=== PATIENT | female | born 2000 | race Caucasian/White ===

== ENCOUNTER 2020-09-23 11:58 | Observation (INO) | payer SELFPAY ==
[~2020-09-23 11:58] MED LIST: DEXAMETHASONE SOD PHOSPHATE INJ 4 MG/1 ML VIAL ONE; DIPHENHYDRAMINE HCL 50 MG/ML VIAL ONE; KETOROLAC TROMETHAMINE 60 MG/2 ML SDV ONE; METOCLOPRAMIDE HCL INJ/PF 10 MG/2 ML SDV ONE; ONDANSETRON HCL INJ/PF 4 MG/2 ML SDV ONE; ROCURONIUM BROMIDE INJ 50 MG/5 ML VIAL IV ONE; SUCCINYLCHOLINE CHLORIDE INJ 200 MG/10 ML VIAL ONE
--- NOTE | 2020-09-23 12:26 | ER Document Report ---
ED Medical Screen (RME) - General Chief Complaint: Abdominal Pain Stated Complaint: ABDOMINAL PAIN,VOMITING Time Seen by Provider: 09/23/20 12:21 Primary Care Provider: DON ENGLAND MD [Primary Care Provider] - Follow up as needed Notes: Patient is a 20-year-old female who presents emergency department with a chief complaint of abdominal pain. Patient reports over the past 2 to 3 weeks she has been battling upper abdominal pain. Patient reports they are significantly worse in the right upper quadrant. Patient denies fever. Patient reports over the past 2 days she has developed vomiting. Denies sick contacts. Denies urinary symptoms. States she has never had any abdominal surgeries in the past. Denies any new medications. Patient's last bowel movement she believes was a couple of days ago. Denies diarrhea. - Related Data Allergies/Adverse Reactions: No Known Allergies Allergy (Verified 09/23/20 12:16) Past Medical History - Social History Frequency of alcohol use: None Drug Abuse: None Physical Exam - Vital signs Vitals: Temp Pulse Resp BP Pulse Ox 98.8 F 94 16 114/64 100 09/23/20 12:07 09/23/20 12:09/23/20 12:09/23/20 12:09/23/20 12:07 - Abdominal Inspection: Normal Distension: No distension Bowel sounds: Normal Tenderness: Tender - Right upper quadrant tenderness with palpation. Course - Re-evaluation Re-evalutation: 09/23/20 12:26 Patient has right upper quadrant tenderness. Will order basic labs, urinalysis as well as right upper quadrant ultrasound to evaluate the gallbladder. I have greeted and performed a rapid initial assessment of this patient. A comprehensive ED assessment and evaluation of the patient, analysis of test results and completion of the medical decision making process will be conducted by additional ED providers. - Vital Signs Vital signs: Temp Pulse Resp BP Pulse Ox 98.8 F 94 16 114/64 100 09/23/20 12:09/23/20 12:09/23/20 12:09/23/20 12:09/23/20 12:07 Doctor's Discharge - Discharge Referrals: DON ENGLAND MD [Primary Care Provider] - Follow up as needed
[2020-09-23 13:36] LABS: ABSOLUTE LYMPHOCYTES (AUTO) 0.9 10^3/uL (0.5-4.7); ABSOLUTE MONOCYTES (AUTO) 0.3 10^3/uL (0.1-1.4); ABSOLUTE NEUT (AUTO) 10.2 10^3/uL (1.7-8.2); BASOPHILS % (AUTO) 0.2 % (0-2); HEMATOCRIT 42.4 % (36.0-47.0); LYMPHOCYTES % (AUTO) 8.1 % (13-45); MEAN CORPUSCULAR HEMOGLOBIN 29.7 pg (27.0-33.4); MEAN CORPUSCULAR HGB CONC 33.1 g/dL (32.0-36.0); MEAN CORPUSCULAR VOLUME 90 fl (80-97); MONOCYTES % (AUTO) 2.9 % (3-13); PLATELET COUNT 334 10^3/uL (150-450); RED BLOOD COUNT 4.73 10^6/uL (3.72-5.28); RED CELL DISTRIBUTION WIDTH 14.8 % (11.5-14.0); SEGMENTED NEUTROPHILS % (AUTO) 88.8 % (42-78); TOTAL CELLS COUNTED % (AUTO) 100 %; WHITE BLOOD COUNT 11.5 10^3/uL (4.0-10.5)
[2020-09-23 13:39] LABS: APPEARANCE,URINE CLEAR; BILIRUBIN,URINE NEGATIVE (NEGATIVE); COLOR,URINE YELLOW; GLUCOSE, URINE NEGATIVE (NEGATIVE); KETONES,URINE 80 mg/dL (NEGATIVE); LEUKOCYTE ESTERASE,URINE NEGATIVE (NEGATIVE); NITRITE,URINE NEGATIVE (NEGATIVE); PROTEIN,URINE 100 mg/dL (NEGATIVE); URINE SPECIFIC GRAVITY 1.019; UROBILINOGEN,URINE NEGATIVE mg/dL (<2.0)
--- NOTE | 2020-09-23 13:41 | RADIOLOGY REPORT (SQ) ---
EXAM DESCRIPTION: U/S ABDOMEN LIMITED W/O DOP IMAGES COMPLETED DATE/TIME: 09/23/2020 1:30 pm REASON FOR STUDY: right upper quadrant pain, evaluate gallbladder COMPARISON: None. TECHNIQUE: Dynamic and static grayscale images acquired of the abdomen and recorded on PACS. Additio oral selected color Doppler and spectral images recorded. LIMITATIONS: None. FINDINGS: PANCREAS: No masses. Visualized pancreatic duct normal caliber. LIVER: No masses. Echotexture normal. LIVER VASCULATURE: Normal directional flow of the main portal vein and hepatic veins. GALLBLADDER: No stones. Mild diffuse wall thickening with trace pericholecystic fluid. ULTRASOUND-DETECTED CLAUDIO'S SIGN: Positive. INTRAHEPATIC DUCTS AND COMMON DUCT: CBD and intrahepatic ducts normal caliber. No filling defects. INFERIOR VENA CAVA: Normal flow. AORTA: No aneurysm. RIGHT KIDNEY: Normal size. Normal echogenicity. No solid or suspicious masses. No hydronephrosis. No calcifications. PERITONEAL AND RIGHT PLEURAL SPACE: No ascites or effusions. OTHER: No other significant findings. IMPRESSION: Mild gallbladder wall thickening with trace pericholecystic fluid and positive sonograph ic Claudio's sign suggests cholecystitis. No demonstrated cholelithiasis. TECHNICAL DOCUMENTATION: JOB ID: [id number] 2010 [employer]- All Rights Reserved Reading location - IP/workstation name: [email or web address]
[2020-09-23 14:03] LABS: ALBUMIN 5.5 g/dL (3.5-5.0); ALKALINE PHOSPHATASE 70 U/L (38-126); ASPARTATE AMINO TRANSFERASE 23 U/L (14-36); BILIRUBIN,DIRECT 0.3 mg/dL (0.0-0.4); BILIRUBIN,TOTAL 0.9 mg/dL (0.2-1.3); BLOOD UREA NITROGEN 8 mg/dL (7-20); CALCIUM 10.2 mg/dL (8.4-10.2); GLUCOSE 75 mg/dL (75-110); POTASSIUM 4.3 mmol/L (3.6-5.0); TOTAL PROTEIN 9.3 g/dL (6.3-8.2)
[2020-09-23 14:08] LABS: CARBON DIOXIDE 13 mmol/L (22-30); CHLORIDE 104 mmol/L (98-107)
[2020-09-23 14:09] LABS: ANION GAP 23 (5-19)
[2020-09-23] MEDS ORDERED: NORMAL SALINE 1000 ML 1,000 ML IV ONE (14:16)
[2020-09-23] MEDS ORDERED: ONDANSETRON HCL INJ/PF 4 MG/2 ML SDV IV ONE (14:17)
--- NOTE | 2020-09-23 14:30 | ER Document Report ---
ED GI/ - General Chief Complaint: Abdominal Pain Stated Complaint: ABDOMINAL PAIN,VOMITING Time Seen by Provider: 09/23/20 12:21 - HPI Notes: 09/23/20 14:26 Patient is a 20-year-old female with no significant past medical history who presents with loss of appetite, nausea, and vomiting. Patient noticed that around the beginning of the year, she had lost her appetite. She states that she then began having vomiting several days ago. She has vomited several times the past 3 days. She complains of pain to her upper abdomen. No fevers or chills. She denies any chest pain or shortness of breath. No Covid contacts. She has never had any abdominal surgeries. She denies any diarrhea or constipation. No urinary symptoms. 09/23/20 20:43 - Related Data Allergies/Adverse Reactions: No Known Allergies Allergy (Verified 09/23/20 12:16) Past Medical History - General Information source: Patient - Social History Smoking Status: Never Smoker Frequency of alcohol use: None Drug Abuse: None Family History: Reviewed & Not Pertinent Review of Systems - Review of Systems Notes: CONSTITUTIONAL: No fever, fatigue or weight loss. SKIN: No rash. HENT: No congestion, ear pain, or sore throat. EYES: No recent vision problems or eye pain. CARDIOVASCULAR: No chest pain or edema. RESPIRATORY: No cough, shortness of breath, congestion, or wheezing. GASTROINTESTINAL: Positive for epigastric pain, nausea, vomiting. No diarrhea. GENITOURINARY: No dysuria. MUSCULOSKELETAL: No joint pain or swelling. LYMPHATIC: No swollen glands. NEUROLOGIC: No seizures. No headache, focal weakness or sensory changes. HEMATOLOGIC: No unusual bruising or bleeding. PSYCHIATRIC: No depression or anxiety. Physical Exam - Vital signs Vitals: Temp Pulse Resp BP Pulse Ox 98.8 F 94 16 114/64 100 09/23/20 12:07 09/23/20 12:07 09/23/20 12:07 09/23/20 12:07 09/23/20 12:07 - General General appearance: Appears well In distress: None Notes: VITAL SIGNS: Within normal limits. GENERAL: No acute distress, non-toxic appearance. HEAD: Normal with no signs of head trauma. EYES: Conjunctiva normal, no discharge. NECK: Normal range of motion, no tenderness, supple, no lymphadenopathy, No adenopathy, no JVD. CHEST: Clear breath sounds bilaterally. No wheezes, rales, or rhonchi. CARDIAC: Regular rate and rhythm. S1 and S2, without murmurs, gallops, or rubs. VASCULAR: No Edema. ABDOMEN: Discomfort to epigastric palpation. No guarding or rigidity. GASTROINTESTINAL: Bowel sounds normal GENITOURINARY: Normal, No tenderness MUSCULOSKELETAL: Good range of motion of all major joints. Extremities without clubbing, cyanosis or edema. NEUROLOGICAL: Alert and oriented x 3. No focal sensory or strength deficits. Speech normal. Follows commands appropriately. PSYCHIATRIC: Normal Affect, judgement and mood. SKIN: Normal appearance with no rashes or lesions. Course - Re-evaluation Re-evalutation: 09/23/20 14:30 Patient's ultrasound is questionable for cholecystitis. She is also very dehydrated on her blood work as her CO2 is low. I will discuss with general surgery. General surgery requested a rapid Covid test and Zosyn. Patient will be admitted to the surgicalist team. Patient and mother have been updated on the plan. 09/23/20 20:44 - Vital Signs Vital signs: Temp Pulse Resp BP Pulse Ox 98.3 F 91 19 113/61 99 09/23/20 20:20 09/23/20 20:20 09/23/20 20:20 09/23/20 20:20 09/23/20 20:20 - Laboratory Results Result Diagrams: 09/23/20 13:18 09/23/20 13:18 Laboratory Results Interpreted: 09/23/20 09/23/20 09/23/20 13:18 13:18 13:18 WBC 11.5 H RDW 14.8 H Lymph % (Auto) 8.1 L [place] % (Auto) 2.9 L Absolute Neuts (auto) 10.2 H Seg Neutrophils % 88.8 H Carbon Dioxide 13 L Anion Gap 23 H Total Protein 9.3 H Albumin 5.5 H Urine Protein 100 H Urine Ketones 80 H Urine Blood SMALL H Critical Laboratory Results Reviewed: No Critical Results - Radiology Results Critical Radiology Results Reviewed: No Critical Results Discharge - Discharge Clinical Impression: Cholecystitis Nausea and vomiting Qualifiers: Vomiting type: unspecified Vomiting Intractability: non-intractable Qualified Code(s): R11.2 - Nausea with vomiting, unspecified Condition: Stable Disposition: ADMITTED INPATIENT Admitting Provider: Surgicalist Unit Admitted: Surgical Floor
[2020-09-23] MEDS ORDERED: PIPERACILLIN/TAZOBACTAM 3.375 GM VIAL IV ONE (14:33)
[2020-09-23] MEDS ORDERED: MORPHINE SULFATE 10 MG/ML INJ IV ONE (14:49)
[2020-09-23] MEDS ORDERED: FENTANYL CITRATE INJ/PF 100 MCG/2 ML AMPUL ONE (16:34)
[2020-09-23] MEDS ORDERED: MIDAZOLAM 2 MG/2 ML INJ ONE (16:34)
[2020-09-23] MEDS ORDERED: PROPOFOL INJ 200 MG/20 ML VIAL IV ONE (16:35)
[2020-09-23] MEDS ORDERED: SUGAMMADEX SODIUM 200 MG/2 ML SDV IV ONE (16:35)
[2020-09-23] MEDS ORDERED: BUPIVACAINE HCL 0.25 % INJ/PF (2.5 MG/1 ML) 30 ML VIAL ONE (16:54)
--- NOTE | 2020-09-23 17:13 | PDOC H&P ---
History of Present Illness Admission Date/PCP: 09/23/20 16:04 Patient complains of: right upper quadrant pain, nausea and vomiting History of Present Illness: ANU TY is a 20 year old female with a 1 week history of worsening, persistent right upper quadrant pain. It began as episodic pain after eating. It has progressed to constant pain that never goes away. She finds it difficult to hold anything down. She vomits every time she eats. She reports feeling weak and lethargic. She presented to the emergency department today for continued pain, fatigue, malaise, and weakness. She denies any sick contacts. The ER identified evidence of cholecystitis on right upper quadrant ultrasound, and surgery was notified. The patient denies chest pain, shortness of breath, blurry vision. Past Medical History Medical History: None Past Surgical History Past Surgical History: Reports: Other - [place] tooth extraction Social History Smoking Status: Current Every Day Smoker Electronic Cigarette use?: Yes Frequency of Alcohol Use: Occasional - Twice per month Drugs: None Family History Parental Family History Reviewed: Yes Children Family History Reviewed: Yes Sibling(s) Family History Reviewed.: Yes Medication/Allergy Allergies/Adverse Reactions: No Known Allergies Allergy (Verified 09/23/20 12:16) Review of Systems Constitutional: PRESENT: anorexia, chills, fatigue, fever(s), weakness Eyes: ABSENT: visual disturbances Ears: ABSENT: hearing changes Nose, Mouth, and Throat: ABSENT: sore throat Cardiovascular: ABSENT: chest pain Respiratory: ABSENT: cough Gastrointestinal: PRESENT: abdominal pain, bloating, nausea, vomiting Genitourinary: ABSENT: dysuria Musculoskeletal: ABSENT: back pain Integumentary: ABSENT: pruritus, rash Neurological: PRESENT: dizziness. ABSENT: confusion, convulsions Psychiatric: ABSENT: anxiety, depression Endocrine: ABSENT: cold intolerance, heat intolerance Hematologic/Lymphatic: ABSENT: easy bleeding, easy bruising Physical Exam Vital Signs: Temp Pulse Resp BP Pulse Ox 98.8 F 94 16 114/64 100 09/23/20 12:07 09/23/20 12:07 09/23/20 12:07 09/23/20 12:07 09/23/20 12:07 Intake & Output 09/22/20 09/23/20 09/24/20 06:59 06:59 06:59 Intake Total 1000 Balance 1000 Weight 61.235 kg General appearance: PRESENT: no acute distress, cooperative Head exam: PRESENT: atraumatic, normocephalic Eye exam: PRESENT: EOMI, PERRLA. ABSENT: scleral icterus Mouth exam: PRESENT: moist, neck supple Neck exam: ABSENT: meningismus, tenderness, thyromegaly, tracheal deviation Respiratory exam: PRESENT: unlabored. ABSENT: tachypnea, wheezes Cardiovascular exam: ABSENT: tachycardia GI/Abdominal exam: PRESENT: distended - mild, Claudio's sign, soft, tenderness Rectal exam: ABSENT: deferred Extremities exam: ABSENT: clubbing Musculoskeletal exam: ABSENT: deformity Neurological exam: PRESENT: alert, awake, oriented to person, oriented to place, oriented to time, oriented to situation Psychiatric exam: ABSENT: agitated, anxious, depressed Focused psych exam: ABSENT: delusional Skin exam: ABSENT: cyanosis, erythema, jaundice Results Laboratory Results: 09/23/20 13:18 09/23/20 13:18 09/23/20 09/23/20 09/23/20 13:18 13:18 13:18 WBC 11.5 H RBC 4.73 Hgb 14.0 Hct 42.4 MCV 90 MCH 29.7 MCHC 33.1 RDW 14.8 H Plt Count 334 Seg Neutrophils % 88.8 H Sodium 140.1 Potassium 4.3 Chloride 104 Carbon Dioxide 13 L Anion Gap 23 H BUN 8 Creatinine 0.62 Est GFR ( Amer) > 60 Glucose 75 Calcium 10.2 Total Bilirubin 0.9 AST 23 Alkaline Phosphatase 70 Total Protein 9.3 H Albumin 5.5 H Urine Color YELLOW Urine Appearance CLEAR Urine pH 5.0 Ur Specific [place] 1.019 Urine Protein 100 H Urine Glucose (UA) NEGATIVE Urine Ketones 80 H Urine Blood SMALL H Urine Nitrite NEGATIVE Ur Leukocyte Esterase NEGATIVE Urine WBC (Auto) 1 Urine RBC (Auto) 5 Impressions: Abdomen Ultrasound 09/23/20 12:26 IMPRESSION: Mild gallbladder wall thickening with trace pericholecystic fluid and positive sonographic Claudio's sign suggests cholecystitis. No demonstrated cholelithiasis. Assessment & Plan - Diagnosis (1) Cholecystitis Is this a current diagnosis for this admission?: Yes - Time Anticipated Discharge Disposition: Home, Self Care Anticipated Discharge Timeframe: within 24 hours - Plan Summary Plan Summary: 20-year-old female with a history, physical, laboratory evaluation, and ultrasound consistent with cholecystitis. I have recommended cholecystectomy as definitive surgical treatment. The patient has agreed to this. Check COVID-19 status. Risk/benefits discussed, informed consent obtained, and all questions answered. Plan for laparoscopic cholecystectomy JESSICA.
[2020-09-23] MEDS ORDERED: FENTANYL CITRATE INJ/PF 100 MCG/2 ML AMPUL IV PRN ×3 (17:36)
[2020-09-23] MEDS ORDERED: MORPHINE SULFATE 10 MG/ML INJ IV PRN (17:36)
[2020-09-23] MEDS ORDERED: DIPHENHYDRAMINE HCL 50 MG/ML VIAL IV PRN (17:36)
[2020-09-23] MEDS ORDERED: MEPERIDINE HCL/PF INJ 25 MG/1 ML DISP.SYRIN IV PRN (17:36)
[2020-09-23] MEDS ORDERED: OXYCODONE-ACETAMINOPHEN 5-325 MG TABLET PO PRN ×2 (17:36)
[2020-09-23] MEDS ORDERED: PROMETHAZINE HCL INJ 25 MG/1 ML VIAL IV PRN ×2 (17:36)
[2020-09-23] MEDS ORDERED: ONDANSETRON HCL INJ/PF 4 MG/2 ML SDV IV PRN (18:14)
--- NOTE | 2020-09-23 18:27 | Operative Report ---
Nonrecallable Operative Report DATE OF SURGERY: 09/23/20 PREOPERATIVE DIAGNOSIS: Acute cholecystitis POSTOPERATIVE DIAGNOSIS: Same as above OPERATION: Laparoscopic cholecystectomy SURGEON: CARMEN CANALES ANESTHESIA: GA TISSUE REMOVED OR ALTERED: Gallbladder COMPLICATIONS: None apparent ESTIMATED BLOOD LOSS: Minimal PROCEDURE: Drains/implants: None. Procedure in detail: After informed consent was obtained, the patient was brought into the operating room and laid in the supine position. A curvilinear supraumbilical incision was created with a 15 blade scalpel. Dissection was carried through the subcutaneous tissues using sharp and blunt dissection. The cicatrix was identified, grasped with a Waqar clamp, and retracted upwards. The linea alba fascia was incised sharply, the abdomen was entered sharply. The balloon trocar was inserted, and pneumoperitoneum was achieved. A subxiphoid 5 mm port was then placed under direct laparoscopic visualization. 2 more 5 mm ports were placed in the right upper quadrant in similar fashion. Atraumatic graspers were placed through the 5 mm ports. The gallbladder was retracted cephalad and laterally. Dissection was begun in the triangle of [place]. The cystic duct and cystic artery were fully visualized and skeletonized, seeing the liver through the triangle. Once the critical view of safety was obtained, the cystic duct and cystic artery were clipped and cut with laparoscopic instruments. There was a small posterior branch of the cystic artery which was also clipped and cut. The gallbladder was then removed from the liver using Bovie electrocautery. Small hole was made in the gallbladderupon dissection, and a small amount of bile was lost in the abdominal cavity. After the gallbladder was completely freed, it was placed into an Endo Catch bag, and pulled out through the umbilicus. The camera was reinserted. The abdomen was irrigated and suctioned, until clear. The hilum was then inspected. The hilum was found to be free of any leakage of blood or bile. Once this was confirmed, the 5 mm trochars were removed under direct laparoscop ic visualization. The supraumbilical trocar was removed, and pneumoperitoneum was relieved. The supraumbilical fascia was closed using 0 Vicryl suture in [id number] fashion. The overlying skin was closed using 4-0 Vicryl Rapide suture in subcuticular fashion. Dressings were placed, and the procedure was concluded. All sponge, instrument, and needle counts were correct x2. Condition: Stable.
[2020-09-23] MEDS ORDERED: OXYCODONE-ACETAMINOPHEN 5-325 MG TABLET ONE (19:02)
[2020-09-23] MEDS: FAMOTIDINE 20 MG TABLET PO SCH (22:17)
[2020-09-23] MEDS: DEXTROSE 5%-LACTATED RINGERS 1,000 ML IV PRN (22:17)
[2020-09-24] MEDS: MORPHINE SULFATE 10 MG/ML INJ IV PRN ×2 (02:55→07:49)
[2020-09-24] MEDS: DEXTROSE 5%-LACTATED RINGERS 1,000 ML IV PRN (05:53)
[2020-09-24 06:59] LABS: ABSOLUTE LYMPHOCYTES (AUTO) 0.6 10^3/uL (0.5-4.7); ABSOLUTE MONOCYTES (AUTO) 0.2 10^3/uL (0.1-1.4); BASOPHILS % (AUTO) 0.2 % (0-2); EOSINOPHILS % (AUTO) 0.1 % (0-6); HEMATOCRIT 34.1 % (36.0-47.0); LYMPHOCYTES % (AUTO) 5.6 % (13-45); MEAN CORPUSCULAR HEMOGLOBIN 29.8 pg (27.0-33.4); MEAN CORPUSCULAR HGB CONC 33.8 g/dL (32.0-36.0); MEAN CORPUSCULAR VOLUME 88 fl (80-97); RED BLOOD COUNT 3.88 10^6/uL (3.72-5.28); RED CELL DISTRIBUTION WIDTH 14.3 % (11.5-14.0); SEGMENTED NEUTROPHILS % (AUTO) 92.1 % (42-78); TOTAL CELLS COUNTED % (AUTO) 100 %; WHITE BLOOD COUNT 10.9 10^3/uL (4.0-10.5)
[2020-09-24 07:22] LABS: ALBUMIN 3.7 g/dL (3.5-5.0); ALKALINE PHOSPHATASE 40 U/L (38-126); ANION GAP 11 (5-19); ASPARTATE AMINO TRANSFERASE 32 U/L (14-36); BILIRUBIN,DIRECT 0.2 mg/dL (0.0-0.4); BILIRUBIN,TOTAL 0.8 mg/dL (0.2-1.3); BLOOD UREA NITROGEN 2 mg/dL (7-20); CARBON DIOXIDE 18 mmol/L (22-30); CHLORIDE 108 mmol/L (98-107); GLUCOSE 171 mg/dL (75-110); POTASSIUM 4.8 mmol/L (3.6-5.0); TOTAL PROTEIN 6.6 g/dL (6.3-8.2)
[2020-09-24 08:26] LABS: HEMOGLOBIN 11.5 g/dL (12.0-15.5)
[2020-09-24 08:27] LABS: PLATELET COUNT 213 10^3/uL (150-450)
[2020-09-24] MEDS ORDERED: HYDROCODONE/ACETAMINOPHEN 10-325 MG TABLET PO PRN (08:27)
[2020-09-24] MEDS: FAMOTIDINE 20 MG TABLET PO SCH (10:29)
--- NOTE | 2020-09-24 12:34 | PDOC DISCHARGE SUMMARY ---
General - Admit/Disc Date/PCP Admission Date/Primary Care Provider: 09/23/20 16:04 Discharge Date: 09/24/20 - Discharge Diagnosis Final Diagnosis: cholecystitis - Assessment Summary: 20-year-old female admitted to hospital with cholecystitis. She was admitted to the hospital and taken to the operating room for laparoscopic cholecystectomy. She was taken to the floor in stable condition after surgery. She began tolerating a diet, and taking oral pain medications. On postoperative day #1 she was ambulating, tolerating her diet, and was medically fit for discharge. - Additional Information Resuscitation Status: Full Code Discharge Diet: As Tolerated Discharge Activity: No Lifting Over 10 Pounds, No Lifting/Push/Pulling Referrals: DON ENGLAND MD [NO LOCAL MD] - Follow up as needed CARMEN CANALES MD [ACTIVE STAFF] - 10/05/20 1:00 pm (CALL THE OFFICE TO CONFIRM YOUR APPOINTMENT AND IF YOU HAVE ANY QUESTIONS OR CONCERS CALL THE OFFICE) Prescriptions: Hydrocodone/Acetaminophen [[place] 10-325 mg Tablet] 1 tab PO Q6HP PRN #14 tablet PRN Reason: For Pain Ondansetron [Zofran Odt 4 mg Tablet] 1 tab PO Q4HP PRN #15 tab.rapdis PRN Reason: Home Medications: Hydrocodone/Acetaminophen [[place] 10-325 mg Tablet] 1 tab PO Q6HP PRN #14 tablet 09/24/20 Ondansetron [Zofran Odt 4 mg Tablet] 1 tab PO Q4HP PRN #15 tab.rapdis 09/24/20 Additional Information: Discharge home. Diet as tolerated. Activity: No lifting more than 10 pounds x 2 weeks. Follow-up with [facility] in 7 to 10 days. [place] 10/325 mg p.o. every 6 hours as needed for pain. Okay to shower starting tomorrow. No tub baths, hot tubs, or swimming pools x2 weeks. History of Present Illiness History of Present Illness: ANU TY is a 20 year old female with a 1 week history of worsening, persistent right upper quadrant pain. It began as episodic pain after eating. It has progressed to constant pain that never goes away. She finds it difficult to hold anything down. She vomits every time she eats. She reports feeling weak and lethargic. She presented to the emergency department today for continued pain, fatigue, malaise, and weakness. She denies any sick contacts. The ER identified evidence of cholecystitis on right upper quadrant ultrasound, and surgery was notified. The patient denies chest pain, shortness of breath, blurry vision. Physical Exam Vital Signs: Temp Pulse Resp BP Pulse Ox 97.7 F 70 18 115/68 99 09/24/20 10:56 09/24/20 10:56 09/24/20 10:56 09/24/20 10:56 09/24/20 10:56 Intake & Output 09/23/20 09/24/20 09/25/20 06:59 06:59 06:59 Intake Total 3055 Output Total 10 Balance 3045 Weight 67.2 kg Results Laboratory Results: WBC 10.9 10^3/uL (4.0-10.5) H 09/24/20 05:52 RBC 3.88 10^6/uL (3.72-5.28) 09/24/20 05:52 Hgb 11.5 g/dL (12.0-15.5) L D 09/24/20 05:52 Hct 34.1 % (36.0-47.0) L 09/24/20 05:52 MCV 88 fl (80-97) 09/24/20 05:52 MCH 29.8 pg (27.0-33.4) 09/24/20 05:52 MCHC 33.8 g/dL (32.0-36.0) 09/24/20 05:52 RDW 14.3 % (11.5-14.0) H 09/24/20 05:52 Plt Count 213 10^3/uL (150-450) 09/24/20 05:52 Lymph % (Auto) 5.6 % (13-45) L 09/24/20 05:52 [place] % (Auto) 2.0 % (3-13) L 09/24/20 05:52 Eos % (Auto) 0.1 % (0-6) 09/24/20 05:52 Baso % (Auto) 0.2 % (0-2) 09/24/20 05:52 Absolute Neuts (auto) 10.0 10^3/uL (1.7-8.2) H 09/24/20 05:52 Absolute Lymphs (auto) 0.6 10^3/uL (0.5-4.7) 09/24/20 05:52 Absolute Monos (auto) 0.2 10^3/uL (0.1-1.4) 09/24/20 05:52 Absolute Eos (auto) 0.0 10^3/uL (0.0-0.6) 09/24/20 05:52 Absolute Basos (auto) 0.0 10^3/uL (0.0-0.2) 09/24/20 05:52 Seg Neutrophils % 92.1 % (42-78) H 09/24/20 05:52 Sodium 136.5 mmol/L (137-145) L 09/24/20 05:52 Potassium 4.8 mmol/L (3.6-5.0) 09/24/20 05:52 Chloride 108 mmol/L (98-107) H 09/24/20 05:52 Carbon Dioxide 18 mmol/L (22-30) L 09/24/20 05:52 Anion Gap 11 (5-19) 09/24/20 05:52 BUN 2 mg/dL (7-20) L 09/24/20 05:52 Creatinine 0.46 mg/dL (0.52-1.25) L 09/24/20 05:52 Est GFR ( Amer) > 60 (>60) 09/24/20 05:52 Est GFR (MDRD) Non-Af > 60 (>60) 09/24/20 05:52 Glucose 171 mg/dL (75-110) H 09/24/20 05:52 Calcium 9.0 mg/dL (8.4-10.2) 09/24/20 05:52 Total Bilirubin 0.8 mg/dL (0.2-1.3) 09/24/20 05:52 Direct Bilirubin 0.2 mg/dL (0.0-0.4) 09/24/20 05:52 Neonat Total Bilirubin Not Reportable 09/24/20 05:52 Neonat Direct Bilirubin Not Reportable 09/24/20 05:52 Neonat Indirect Bili Not Reportable 09/24/20 05:52 AST 32 U/L (14-36) 09/24/20 05:52 ALT 18 U/L (<35) 09/24/20 05:52 Alkaline Phosphatase 40 U/L (38-126) 09/24/20 05:52 Total Protein 6.6 g/dL (6.3-8.2) 09/24/20 05:52 Albumin 3.7 g/dL (3.5-5.0) 09/24/20 05:52 Urine Color YELLOW 09/23/20 13:18 Urine Appearance CLEAR 09/23/20 13:18 Urine pH 5.0 (5.0-9.0) 09/23/20 13:18 Ur Specific [place] 1.019 09/23/20 13:18 Urine Protein 100 mg/dL (NEGATIVE) H 09/23/20 13:18 Urine Glucose (UA) NEGATIVE mg/dL (NEGATIVE) 09/23/20 13:18 Urine Ketones 80 mg/dL (NEGATIVE) H 09/23/20 13:18 Urine Blood SMALL (NEGATIVE) H 09/23/20 13:18 Urine Nitrite NEGATIVE (NEGATIVE) 09/23/20 13:18 Urine Bilirubin NEGATIVE (NEGATIVE) 09/23/20 13:18 Urine Urobilinogen NEGATIVE mg/dL (<2.0) 09/23/20 13:18 Ur Leukocyte Esterase NEGATIVE (NEGATIVE) 09/23/20 13:18 Urine WBC (Auto) 1 /HPF 09/23/20 13:18 Urine RBC (Auto) 5 /HPF 09/23/20 13:18 Squamous Epi Cells Auto 3 /HPF 09/23/20 13:18 Urine Mucus (Auto) RARE /LPF 09/23/20 13:18 Urine Ascorbic Acid NEGATIVE (NEGATIVE) 09/23/20 13:18 Urine HCG, Qual NEGATIVE (NEGATIVE) 09/23/20 13:18 Influenza A (RT-PCR) NEGATIVE (NEGATIVE) 09/23/20 15:27 Influenza B (RT-PCR) NEGATIVE (NEGATIVE) 09/23/20 15:27 RSV (RT-PCR) NEGATIVE (NEGATIVE) 09/23/20 15:27 SARS-CoV-2 Rap RNA(RT-PCR) NEGATIVE (NEGATIVE) 09/23/20 15:27 Impressions: Abdomen Ultrasound 09/23/20 12:26 IMPRESSION: Mild gallbladder wall thickening with trace pericholecystic fluid and positive sonographic Claudio's sign suggests cholecystitis. No demonstrated cholelithiasis.
[2020-09-24 13:18] VITALS: BP 114/64
== END 2020-09-24 14:10 | disposition home or self-care (01) ==
LOC: ER 11:58 → EH 16:04 → INTOOBSV 16:04 → 2N 19:48
PROVIDERS: ATTEND Surgery
DX: K81.1 Chronic cholecystitis (principal); Z01.812 Encounter for preprocedural laboratory examination; Z20.822 Contact with and (suspected) exposure to COVID-19; F17.200 Nicotine dependence, unspecified, uncomplicated; R42 Dizziness and giddiness; E86.0 Dehydration; R79.81 Abnormal blood-gas level
CPT/HCPCS: 96376; 99285; 96375; 96365; 36415 ×2; 85025 ×2; 0241U; 81025; 80053 ×2; 81001; 88304 ×2; 76705; 47562; G0378 ×3; J2250; J3490 ×2; J1100; J1200; J1885; J3010; J2765; J2270 ×2; J0330; J2405 ×2; J7121 ×2; J7030; J2704; J2543; C9803; 790

== ENCOUNTER 2020-09-26 00:28 | Emergency (ER) | payer OTHER ==
[2020-09-26] MEDS ORDERED: NORMAL SALINE 1000 ML 1,000 ML IV ONE (00:54)
[2020-09-26] MEDS ORDERED: PROMETHAZINE HCL INJ 25 MG/1 ML VIAL IV ONE (00:54)
--- NOTE | 2020-09-26 01:00 | ER Document Report ---
ED Medical Screen (RME) - General Stated Complaint: POST OP ISSUES,VOMITING Time Seen by Provider: 09/26/20 00:52 Notes: Patient is a 19-year-old female presents emergency department with a chief complaint of pain at her surgery sites for her cholecystectomy. Her chol ecystectomy was 3 days ago. Denies any fever. States that she has been taking her pain medicine and Zofran, but still continues to have pain and started vomiting tonight. Last BM was before surgery. Exam: Tenderness at incision sites. I have greeted and performed a rapid initial assessment of this patient. A comprehensive ED assessment and evaluation of the patient, analysis of test results and completion of medical decision making process will be conducted by an additional ED providers. - Related Data Allergies/Adverse Reactions: No Known Allergies Allergy (Verified 09/23/20 12:16) Past Medical History Past Surgical History: Reports: Hx Oral Surgery, Other - [place] tooth extraction Physical Exam - Vital signs Vitals: Temp Pulse Resp BP Pulse Ox 98.5 F 63 12 114/84 100 09/26/20 00:46 09/26/20 00:46 09/26/20 00:46 09/26/20 00:46 09/26/20 00:46 Course - Vital Signs Vital signs: Temp Pulse Resp BP Pulse Ox 98.5 F 63 12 114/84 100 09/26/20 00:46 09/26/20 00:46 09/26/20 00:46 09/26/20 00:46 09/26/20 00:46
[2020-09-26] MEDS ORDERED: HYDROMORPHONE HCL INJ/PF 2 MG/ML AMPULE IV ONE ×3 (01:27→03:06)
[2020-09-26 01:33] LABS: ABSOLUTE LYMPHOCYTES (AUTO) 1.9 10^3/uL (0.5-4.7); ABSOLUTE MONOCYTES (AUTO) 0.4 10^3/uL (0.1-1.4); ABSOLUTE NEUT (AUTO) 5.2 10^3/uL (1.7-8.2); BASOPHILS % (AUTO) 0.4 % (0-2); EOSINOPHILS % (AUTO) 0.2 % (0-6); HEMATOCRIT 37.2 % (36.0-47.0); HEMOGLOBIN 12.7 g/dL (12.0-15.5); LYMPHOCYTES % (AUTO) 25.9 % (13-45); MEAN CORPUSCULAR HEMOGLOBIN 29.8 pg (27.0-33.4); MEAN CORPUSCULAR HGB CONC 34.1 g/dL (32.0-36.0); MEAN CORPUSCULAR VOLUME 87 fl (80-97); PLATELET COUNT 244 10^3/uL (150-450); RED BLOOD COUNT 4.26 10^6/uL (3.72-5.28); RED CELL DISTRIBUTION WIDTH 14.5 % (11.5-14.0); SEGMENTED NEUTROPHILS % (AUTO) 68.5 % (42-78); TOTAL CELLS COUNTED % (AUTO) 100 %; WHITE BLOOD COUNT 7.5 10^3/uL (4.0-10.5)
--- NOTE | 2020-09-26 01:48 | ER Document Report ---
Entered by RAY SAAVEDRA SCRIBE 09/26/20 0126 Acting as scribe for:LIZBET COOPER IV, MD ED GI/ - General Chief Complaint: Other Stated Complaint: POST OP ISSUES,VOMITING Time Seen by Provider: 09/26/20 00:52 Mode of Arrival: Ambulatory Information source: Patient Notes: This 20-year-old female patient s/p laparoscopic cholecystectomy 2 days ago presents to the emergency department today with complaints of nausea and vomiting. Patient reports that she felt fine at discharge yesterday, tonight at around 10 PM she began vomiting and now has some pain around the sides of her incisions. She has not noticed any drainage or redness extending from the surgical sites. Patient has been unable to hold down her pain meds tonight due to the vomiting. Patient denies fevers. - Related Data Allergies/Adverse Reactions: No Known Allergies Allergy (Verified 09/23/20 12:16) Home Medications: zofran Past Medical History - General Information source: Patient - Social History Smoking Status: Current Every Day Smoker Cigarette use (# per day): Yes Chew tobacco use (# tins/day): No Frequency of alcohol use: Social Drug Abuse: Marijuana Lives with: Family Family History: Reviewed & Not Pertinent Patient has homicidal ideation: No - Medical History Medical History: Negative Past Surgical History: Reports: Hx Cholecystectomy, Hx Oral Surgery, Other - [place] tooth extraction Review of Systems - Review of Systems Constitutional: No symptoms reported EENT: No symptoms reported Cardiovascular: No symptoms reported Respiratory: No symptoms reported Gastrointestinal: See HPI, Abdominal pain, Nausea, Vomiting Genitourinary: No symptoms reported Female Genitourinary: No symptoms reported Musculoskeletal: No symptoms reported Skin: No symptoms reported Hematologic/Lymphatic: No symptoms reported Neurological/Psychological: No symptoms reported -: Yes All other systems reviewed and negative Physical Exam - Vital signs Vitals: Temp Pulse Resp BP Pulse Ox 98.5 F 63 12 114/84 100 09/26/20 00:46 09/26/20 00:46 09/26/20 00:46 09/26/20 00:46 09/26/20 00:46 - Notes Notes: Physical Exam: General: Alert, appears uncomfortable. HEENT: Normocephalic. Atraumatic. PERRL. Extraocular movements intact. Oropharynx clear. Neck: Supple. Non-tender. Respiratory: No respiratory distress. Clear and equal breath sounds bilaterally. Cardiovascular: Regular rate and rhythm. Abdominal: Incision sites have butterfly bandages over them, they appear clean, dry, and intact. There is mild tenderness around the sites which is expected, there is no erythema or drainage from these sites. No distension. Normal Bowel Sounds. Back: No gross abnormalities. Extremities: Moves all four extremities. Upper extremities: Normal inspection. Normal ROM. Lower extremities: Normal inspection. No edema. Normal ROM. Neurological: Normal cognition. AAOx4. Normal speech. Psychological: Normal affect. Normal Mood. Skin: Warm. Dry. Normal color. Course - Re-evaluation Re-evalutation: 09/26/20 03:40 Differential diagnosis: Postoperative pain, postoperative infection, other postoperative complication MDM: After reviewing the labs which appeared to be grossly normal and discussing the case with Dr. Martínez, we agreed that postop imaging does not seem to be needed at this time. Patient's diagnosis is most consistent with postoperative nausea and vomiting and pain without other complication. At 0338 hrs., patient states she is feeling better states her nausea and pain are both controlled. Results of ED MSE, consult with Dr. Martínez, discharge instructions all discussed with patient and patient's mother. All questions were answered prior to discharge. Emergency signs and symptoms, reasons to return to the emergency department discussed with patient and patient's mother. - Vital Signs Vital signs: Temp Pulse Resp BP Pulse Ox 98.5 F 63 12 114/84 100 09/26/20 00:54 09/26/20 00:46 09/26/20 00:46 09/26/20 00:46 09/26/20 00:46 - Laboratory Results Result Diagrams: 09/26/20 01:20 09/26/20 01:20 Laboratory Results Interpreted: 09/26/20 09/26/20 01:20 01:20 RDW 14.5 H BUN 2 L Critical Laboratory Results Reviewed: No Critical Results Attending or Supervising Physician who Reviewed Labs: LIZBET COOPER IV - Radiology Results Critical Radiology Results Reviewed: No Critical Results - Consults Dr. Martínez, surgeon Time consulted: 03:35 - Results of lab work discussed with Dr. Martínez. Positive response to 8 mg of Zofran also discussed with Dr. Martínez. He agrees that the Zofran can be increased and also recommends prescribing the patient some Pepcid since she has some gastritis issues as well Reason for consultation: 09/26/20 03:39 Postop nausea and pain Discharge - Discharge Clinical Impression: Postoperative pain, Postoperative nausea and vomiting Condition: Stable Disposition: HOME, SELF-CARE Additional Instructions: Return to the Emergency Department without delay if any worse. HOME CARE INSTRUCTIONS & INFORMATION: Thank you for choosing us for your medical needs. We hope you're satisfied with the care you received. After you leave, you must properly care for your problem and, at the same time, observe its progress. Any condition can change. Some illnesses can change rapidly over hours or days. If your condition worsens, return to the Emergency Department or see your physician promptly. ABOUT YOUR X-RAYS AND EKG'S: If you had an EKG or X-rays taken, they have been read by the Emergency Physician. The X-rays and EKG's will also be read by a Radiologist or Rotary Adjuster within 24 hours. If discrepancies are noted, you will be notified by telephone. Please be certain the ED has a correct telephone number & address where you can be reached. Also, realize that some fractures or abnormalities do not show up on initial X-rays. If your symptoms continue, see your physician. ABOUT YOUR LABORATORY TEST: If you had laboratory tests, the results have been reviewed by the Emergency Physician. Some test results (for example cultures) may not be available for several days. You will be contacted if any test result shows you need additional treatment. Please be certain the ED has a correct telephone number and address where you can be reached. ABOUT YOUR MEDICATIONS: You will receive instructions on how to take your medicine on the prescription label you receive. Additional information may be provided by the Pharmacy. If you have questions afterwards, call the ED for clarification or further instructions. Some prescribed medications may cause drowsiness. Do not perform tasks such as driving a car or operating machinery without consulting your Pharmacist. If you feel you need a refill of pain medication, your condition will need re-evaluation. Please do not call for a refill of any medication. ABOUT YOUR SIGNATURE: Signature of this document acknowledges to followin. Understanding that you received emergency treatment and that you may be released before al medical problems are known or treated. Please be certain the ED has a correct phone number & address where you can be reached. 2. Acknowledgement that you will arrange for follow-up care as recommended. 3. Authorization for the Emergency Physician to provide information to your follow-up Physician in order to maximize your care. AT ANY TIME, IF YOUR SYMPTOMS CHANGE SIGNIFICANTLY OR WORSEN OR YOU DEVELOP NEW SYMPTOMS, RETURN TO THE EMERGENCY DEPARTMENT IMMEDIATELY FOR RE-EVALUATION. OUR GOAL IS TO PROVIDE EXCELLENT MEDICAL CARE! WE HOPE THAT WE HAVE MET YOUR EXPECTATIONS DURING YOUR EMERGENCY DEPARTMENT VISIT AND THAT YOU FEEL YOU HAVE RECEIVED EXCELLENT CARE! Prescriptions: Ondansetron HCl [Zofran] 8 mg PO Q8HP PRN #15 tablet PRN Reason: nausea Famotidine [Pepcid 20 mg Tablet] 20 mg PO BID #14 tablet Referrals: CARMEN MARTÍNEZ MD [ACTIVE STAFF] - 10/05/20 I personally performed the services described in the documentation, reviewed and edited the documentation which was dictated to the scribe in my presence, and it accurately records my words and actions.
[2020-09-26 01:52] LABS: ALBUMIN 4.2 g/dL (3.5-5.0); ALKALINE PHOSPHATASE 47 U/L (38-126); ANION GAP 12 (5-19); ASPARTATE AMINO TRANSFERASE 25 U/L (14-36); BILIRUBIN,DIRECT 0.4 mg/dL (0.0-0.4); BILIRUBIN,TOTAL 0.7 mg/dL (0.2-1.3); BLOOD UREA NITROGEN 2 mg/dL (7-20); CALCIUM 9.4 mg/dL (8.4-10.2); CARBON DIOXIDE 23 mmol/L (22-30); CHLORIDE 104 mmol/L (98-107); GLUCOSE 88 mg/dL (75-110); POTASSIUM 3.7 mmol/L (3.6-5.0)
[2020-09-26] MEDS ORDERED: ONDANSETRON HCL INJ/PF 4 MG/2 ML SDV IV ONE (02:13)
[2020-09-26] MEDS ORDERED: ONDANSETRON ODT 4 MG TAB (6 TAB/ER DISP) PO PRN (03:44)
[2020-09-26] MEDS ORDERED: HYDROCODONE/ACETAMINOPHEN 5-325 MG (6 TAB/ER DISP) PO PRN (03:44)
[2020-09-26 04:13] VITALS: BP 107/70
== END 2020-09-26 04:13 | disposition home or self-care (01) ==
LOC: ER 00:28
DX: G89.18 Other acute postprocedural pain (principal); R11.2 Nausea with vomiting, unspecified; R10.9 Unspecified abdominal pain; F17.210 Nicotine dependence, cigarettes, uncomplicated; Z98.890 Other specified postprocedural states; Z79.899 Other long term (current) drug therapy
CPT/HCPCS: 96376; 99284; 96361; 96374; 96375; 36415; 83690; 85025; 80053; J1170; J2550; J2405; J7030